=== PATIENT | female | born 1970 | race Caucasian/White ===

== ENCOUNTER 2019-08-23 10:42 | Emergency (ER) | payer OTHER ==
[~2019-08-23] VITALS: Ht 154.9 cm; Wt 71.7 kg
[2019-08-23 10:48] VITALS: Ht 154.9 cm; Wt 71.7 kg
[2019-08-23 12:10] VITALS: BP 120/78
== END 2019-08-23 12:00 | disposition home or self-care (01) ==
LOC: ED 10:42
DX: N39.0 Urinary tract infection, site not specified (principal); J45.909 Unspecified asthma, uncomplicated